=== PATIENT | female | born 1950 | race Caucasian/White ===

== ENCOUNTER → 2018-03-01 | Outpatient (CLI) | payer MEDICARE, OTHER ==
[~2018-03-01] MED LIST: IPRATROPIUM 2.2.5 ML IH; LORTAB 5/500 501 TAB PO; PULMICORT0.5 MG/21 IH; SINGULAIR; [UNRECOGNIZED DRUG - OTHER]; omnaris
== END ==
LOC: COL.VAS 10:27
DX: I65.23 Occlusion and stenosis of bilateral carotid arteries (principal); I10 Essential (primary) hypertension

== ENCOUNTER → 2018-05-25 | Outpatient (CLI) | payer MEDICARE, OTHER | LOC: COL.RAD 07:59 | DX: I65.23 Occlusion and stenosis of bilateral carotid arteries (principal); M47.812 Spondylosis without myelopathy or radiculopathy, cervical region; E04.2 Nontoxic multinodular goiter | CPT/HCPCS: Q9967 ==

== ENCOUNTER → 2018-09-13 | Outpatient (CLI) | payer MEDICARE, OTHER | LOC: MC.RAD 07:41 | DX: Z12.31 Encounter for screening mammogram for malignant neoplasm of breast (principal) ==

== ENCOUNTER → 2018-09-14 | Outpatient (CLI) | payer MEDICARE, OTHER | LOC: COL.RAD 07:02 | DX: Z12.31 Encounter for screening mammogram for malignant neoplasm of breast (principal); G31.9 Degenerative disease of nervous system, unspecified; J01.00 Acute maxillary sinusitis, unspecified; R42 Dizziness and giddiness; M54.2 Cervicalgia | CPT/HCPCS: A9585 ==

== ENCOUNTER → 2018-12-18 | Outpatient (CLI) | payer MEDICARE, OTHER ==
[2018-12-18] VITALS (8 sets, daily range): BP systolic 109–129; BP diastolic 55–71; PULSE 50–57; TEMP 97.9
[~2018-12-18] MED LIST changes: +ASPIRIN E.C. 8181 MG PO; +ASTELIN NASAL S34 ML NS; +ATROVENTNS0.03% NS; +COZAAR 50MG50 MG/TAB PO; +FLONASEALLERGY NS; +IMDUR 30MG30 MG/TAB PO; +LIPITOR 10MG10 MG PO; +MURO-128 5% OP3.5 GM OP; +PLAVIX 75MG TAB75 MG PO; +PROBIOTIC FORMU1 CAP PO; +PULMICORT180 MCG/Ac IH; +RESTASIS MULTI5.5 ML OP; +SINGULAIR 110 MG/TAB PO
--- NOTE | 2018-12-18 09:30 | NUR ---
Pt to [facility] per cart s/p cisternogram. Pt resting well.
--- NOTE | 2018-12-18 11:33 | NUR ---
Pt has ambulated, voided and vanessa PO intake s n/v.
--- NOTE | 2018-12-18 12:25 | NUR ---
Pt to radiology per w/c for imaging. Pt will be discharged from radiology dept.
== END ==
LOC: COL.RAD 08:30
DX: R51 Headache (principal); R42 Dizziness and giddiness
CPT/HCPCS: A9548

== ENCOUNTER 2019-01-06 12:05 | Emergency (ER) | payer MEDICARE, OTHER | END 2019-01-06 17:23 | disposition home or self-care (01) | LOC: COL.ER 12:05 | DX: S62.102A Fracture of unspecified carpal bone, left wrist, initial encounter for closed fracture (principal); S01.81XA Laceration without foreign body of other part of head, initial encounter; Z79.02 Long term (current) use of antithrombotics/antiplatelets; J45.909 Unspecified asthma, uncomplicated; W00.0XXA Fall on same level due to ice and snow, initial encounter; Y92.009 Unspecified place in unspecified non-institutional (private) residence as the place of occurrence of the external cause ==

== ENCOUNTER → 2019-12-17 | Outpatient (CLI) | payer MEDICARE, OTHER | LOC: MC.RAD 16:27 | DX: Z12.31 Encounter for screening mammogram for malignant neoplasm of breast (principal) ==

== ENCOUNTER → 2022-02-16 | Outpatient (CLI) | payer MEDICARE, OTHER | LOC: MC.RAD 12-31 10:30 | DX: Z12.31 Encounter for screening mammogram for malignant neoplasm of breast (principal) ==